=== PATIENT | female | born 1995 | race Caucasian/White ===

== ENCOUNTER 2021-04-27 17:29 | Emergency (ER) | payer OTHER ==
[2021-04-27 20:38] LABS: HCT 40.5 % (37.0-47.0); HGB 13.8 g/dl (12.5-16.0); MCH 30.6 pg (25.0-31.0); MCHC 34.1 g/dL (32.0-36.0); MCV 89.8 fL (78.0-100.0); RBC 4.51 M/uL (4.20-5.40); RDW 12.2 % (11.5-14.0); WBC 8.5 K/uL (4.0-10.5)
[2021-04-27 21:13] LABS: BUN 6 mg/dL (7-18); BUN/CREAT RATIO (CALC) 8.7 RATIO; CHLORIDE 98 mmol/L (98-107); CO2 (BICARBONATE) 24 mmol/L (21-32); CREATININE 0.69 mg/dL (0.51-0.95); GLUCOSE 109 mg/dL (74-106)
[2021-04-27 21:15] LABS: C-REACTIVE PROTEIN < 0.20 mg/dL (<=0.90); POTASSIUM 2.4 mmol/L (3.5-5.1)
[2021-04-27 21:16] LABS: LACTIC ACID 2.9 mmol/L (0.4-1.9)
== END 2021-04-27 23:54 | disposition left against medical advice (07) ==
LOC: FER 17:29
PROVIDERS: Emergency Medicine
DX: M79.605 Pain in left leg (principal); F17.200 Nicotine dependence, unspecified, uncomplicated; Z91.048 Other nonmedicinal substance allergy status; Z88.6 Allergy status to analgesic agent; Z53.8 Procedure and treatment not carried out for other reasons
CPT/HCPCS: 36415; 71275; 73701; 80048; 83605; 84145; 84484; 85379; 86140; 87040; 93005; J2270; J2543; J3370; J7050; Q9967